=== PATIENT | male | born 1985 | race Caucasian/White ===

== ENCOUNTER 2018-03-08 13:00 | Emergency (ER) | payer OTHER ==
[2018-03-08] MEDS ORDERED: Carbamide Peroxide 6.5% Otic Drops 15 ml Bottle EA EAR SCH (14:30)
== END 2018-03-08 16:41 | disposition home or self-care (01) ==
LOC: ERS 13:00
DX: H61.23 Impacted cerumen, bilateral (principal)
CPT/HCPCS: 99283